=== PATIENT | male | born 1995 | race Caucasian/White ===

== ENCOUNTER → 2017-01-12 | Outpatient (CLI) | payer BC ==
--- NOTE | 2017-01-12 12:13 | Diagnostic Imaging Report ---
US SCROTUM (Testicle) [id number] TECHNIQUE: Dover-scale, color doppler and spectral duplex imaging of the scrotum and its contents was performed. INDICATION: Right scrotal pain after trauma. COMPARISON: None available. FINDINGS: Right: The right testis is normal in size measuring 4.4 x 2.4 x 3.6 cm. It has homogenous echogenicity without mass or microcalcification. Blood flow is present in the right testis by color doppler imaging, and low resistance waveforms are present. The epididymis is normal. No hydrocele or varicole. Left: The left testis is normal in size measuring 4.4 x 2.4 x 3.3 cm. It has homogenous echogenicity without mass or microcalcification. Blood flow is present in the left testis by color doppler imaging, and low resistance waveforms are present. The epididymis is normal. No hydrocele or varicole. IMPRESSION: Normal bilateral testes without evidence of acute traumatic injury. Dictated by: Dictated on workstation # [id number]
== END ==
LOC: RAD 11:07
PROVIDERS: ATTEND Surgery
DX: N50.811 Right testicular pain (principal); N50.89 Other specified disorders of the male genital organs
CPT/HCPCS: 76870

== ENCOUNTER 2021-03-14 22:01 | Emergency (ER) | payer BC, OTHER ==
[~2021-03-14] VITALS: Ht 69 cm; Wt 86.2 kg
[2021-03-14 22:18] VITALS: BP 105/64
--- NOTE | 2021-03-14 23:08 | ED Cough/URI ---
General Chief Complaint: COVID19 Suspect/Confirmed Stated Complaint: COUGH,SCRATCHY THROAT,NO APET.,DIARRHEA,NAUSEA Nursing Triage Note: Pt arrives via POV from home with c/o SOB with cough; diarrhea; et no appetite. Pt reports testing positive for COVID yesterday at [facility]. Source: patient History of Present Illness Date Seen by Provider: Mar 14, 2021 Time Seen by Provider: 22:11 Initial Comments PT ARRIVES VIA POV FROM HOME [place], WITH FEMALE S.O.--BOTH ARE BEING SEEN FOR SAME PT BEGAN GETTING SICK ON Tuesday03/05/21 PT WAS IN [place] AT THE TIME--PT IS SELF-EMPLOYED RN PRIVATE DUTY C/O NON-PRODUCTIVE COUGH C/O NASAL CONGESTION C/O SORE THROAT C/O LOSS OF TASTE AND SMELL C/O HEADACHE C/O BODY ACHES C/O SUBJECTIVE FEVER AND CHILLS--HAS NEVER CHECKED TEMPERATURE C/O NAUSEA, NO VOMITING C/O DIARRHEA--X 3 TODAY PT IS VOIDING A NORMAL AMOUNT PT IS NOT EATING DUE TO LOSS OF APPETITE, BUT IS DRINKING LIQUIDS C/O GENERALIZED WEAKNESS AND FATIGUE NO CHEST PAIN HAS HAD MILD SHORTNESS OF BREATH AT TIMES PT HAS NOT HAD COVID-19 VACCINE PT TESTED + FOR COVID-19 AT [facility] YESTERDAY PT HAS NOT TAKEN ANYTHING FOR SYMPTOMS PT HAS NOT SOUGHT CARE UNTIL TONIGHT SYMPTOMS NO DIFFERENT TONIGHT PT HAS NO CHRONIC ILLNESSES PCP: NONE Allergies and Home Medications Allergies Coded Allergies: No Known Drug Allergies (Unverified , 03/14/21) Patient Home Medication List Home Medication List Reviewed: Yes Ondansetron (Ondansetron Odt) 4 Mg Tab.rapdis, 4 MG PO Q4H Prescribed by: KANA BAE on 03/14/21 1167 Review of Systems Review of Systems Constitutional: see HPI, chills, fever, malaise, weakness EENTM: see HPI, nose congestion, throat pain Respiratory: see HPI, cough, short of breath Cardiovascular: no symptoms reported; No chest pain Gastrointestinal: see HPI; No abdominal pain; diarrhea, loss of appetite, nausea; No vomiting Genitourinary: no symptoms reported Musculoskeletal: see HPI (BODY ACHES) Skin: no symptoms reported Psychiatric/Neurological: See HPI, Headache Hematologic/Lymphatic: No Symptoms Reported Immunological/Allergic: no symptoms reported Past Ghmovuc-Pstphp-Ewuxhf Hx Patient Social History Tobacco Use?: Yes Tobacco type used: Cigarettes Smoking Status: Current Someday Smoker Use of E-Cig and/or Vaping dev: No Substance use?: No Alcohol Use?: Yes Alcohol Frequency: Once in a while Pt feels they are or have been: No Past Medical History Surgeries: Yes Adenoidectomy Respiratory: Yes (ASTHMA CHILD) Cardiac: No Neurological: No Genitourinary: No Gastrointestinal: No Musculoskeletal: No Endocrine: No HEENT: No Psychosocial: No Integumentary: No Blood Disorders: No Physical Exam Vital Signs - First Documented Capillary Refill : Less Than 3 Seconds Height: '" Weight: lbs. oz. 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, no motor/sensory deficits, alert, normal mood/affect, oriented x 3 Skin: normal color, warm/dry; No rash Progress/Results/Core Measures Suspected Sepsis SIRS Temperature: Pulse: 105 Respiratory Rate: 20 Blood Pressure 105 /64 Mean: 78 Results/Orders Lab Results Laboratory Tests Test 03/14/21 22:15 Range/Units Influenza Type A (RT-PCR) Not Detected Not Detecte Influenza Type B (RT-PCR) Not Detected Not Detecte SARS-CoV-2 RNA (RT-PCR) Detected H Not Detecte My Orders Orders - KANA BAE DO Influenza A And B By Pcr (03/14/21 22:12) Covid 19 Inhouse Test (03/14/21 22:12) Rx-Ondansetron Po (Rx-Zofran Po) (03/14/21 23:40) Acetaminophen Tablet (Tylenol Tablet) (03/15/21 00:00) Ibuprofen Tablet (Motrin Tablet) (03/15/21 00:00) Acetaminophen Tablet (Tylenol Tablet) (03/14/21 23:57) Ibuprofen Tablet (Motrin Tablet) (03/14/21 23:57) Medications Given in ED Current Medications Medications Dose Ordered Sig/Bre Route Start Time Stop Time Status Last Admin Dose Admin Acetaminophen 1,000 mg ONCE ONCE PO 03/15/21 00:00 03/15/21 00:09 DC 03/15/21 00:03 1,000 MG Ibuprofen 800 mg ONCE ONCE PO 03/15/21 00:00 03/15/21 00:09 DC 03/15/21 00:03 800 MG Vital Signs/I&O 03/14/21 03/14/21 22:18 22:18 Temp 39.0 Pulse 105 Resp 20 B/P (MAP) 105/64 (78) Pulse Ox 95 O2 Delivery Room Air Room Air Capillary Refill : Less Than 3 Seconds Blood Pressure Mean: 78 Progress Note : Progress Note PLACED IN ISOLATION ROOM PPE WORN AT ALL TIMES COVID-19 TESTING PERFORMED NO HYPOXIA NO SIGNFICANT COUGH NO DYSPNEA GIVEN ZOFRAN FOR NAUSEA GIVEN TYLENOL AND MOTRIN FOR FEVER AND BODY ACHES, HEADACHE, ETC. PT IS NOT A CANDIDATE FOR REGENERON, SYMPTOMS STARTED 10 DAYS AGO DISCUSSED ANTICIPATED COURSE AND SYMPTOMATIC TREATMENT Departure Impression Primary Impression: COVID-19 virus infection Disposition: 01 HOME, SELF-CARE Condition: Stable Departure-Patient Inst. Decision time for Depature: 23:07 Referrals: NO,LOCAL PHYSICIAN (PCP/Family) Primary Care Physician Patient Instructions: Preventing the Spread of an Infectious Disease, COVID-19 (DC) Add. Discharge Instructions: LOTS OF CLEAR LIQUIDS TYLENOL 1 GRAM/ MOTRIN 800 MG 4 TIMES A DAY FOR PAIN OR FEVER OVER THE COUNTER ROBITUSSIN DM FOR COUGH AND CONGESTIONS QUARANTINE FOR 10 ADDITIONAL DAYS FOLLOW UP WITH DR OF CHOICE IN 4-5 DAYS IF NO BETTER, RETURN TO ER IF WORSE All discharge instructions reviewed with patient and/or family. Voiced understanding. Scripts Ondansetron (Ondansetron Odt) 4 Mg Tab.rapdis 4 MG PO Q4H for Nausea/Vomiting, #10 TAB Prov: KANA BAE DO 03/14/21 KANA BAE DO Mar 14, 2021 23:08
[2021-03-14] MEDS ORDERED: RX-ONDANSETRON 4 MG ODT (ZOFRAN) PPK #4 PO STA (23:40)
[2021-03-14] MEDS ORDERED: ONDA4TAB11 PO (23:41)
[2021-03-14] MEDS ORDERED: ACETAMINOPHEN 500 MG TAB (TYLENOL) ONE (23:57)
[2021-03-14] MEDS ORDERED: IBUPROFEN 800 MG (MOTRIN) TAB PO ONE (23:57)
[2021-03-15] MEDS ORDERED: ACETAMINOPHEN 500 MG TAB (TYLENOL) PO ONE
[2021-03-15] MEDS ORDERED: IBUPROFEN 800 MG (MOTRIN) TAB PO ONE
== END 2021-03-15 00:09 | disposition home or self-care (01) ==
LOC: EDUNIT# 22:01 → ER 22:04
DX: U07.1 COVID-19 (principal); F17.210 Nicotine dependence, cigarettes, uncomplicated
CPT/HCPCS: 87636; 99283